=== PATIENT | female | born 1930 | race Caucasian/White ===

== ENCOUNTER 2020-02-06 17:22 | Observation (INO) ==
--- NOTE | 2020-02-06 17:49 | Emergency Department Note ---
History of Present Illness General Chief complaint: Stroke/CVA Symptoms Stated complaint: cva symptoms Time Seen by Provider: 02/06/20 17:31 Source: patient Mode of arrival: ambulatory Limitations: no limitations History of Present Illness This patient comes in after having an episode where she had slurred speech. This occurred between 1 and 130. It lasted for about 15 minutes, she is asymptomatic now. She has been having left frontal headaches off and on for several months that last about 5 minutes she had a headache earlier and then she had this. There has been no change in vision. No focal numbness or weakness. No fall or trauma or recent illness. She is not on any blood thinners. She denies any COVID exposure or COVID-like symptoms. Specifically denies shortness of breath, cough, fever, flulike symptom, change in taste or smell. Denies dysuria or hematuria. She has had trouble with her blood pressure in the past. Home Medications Home Medications Medication Instructions Recorded Confirmed Type aspirin 81 mg PO QPM 03/24/19 02/06/20 History atenolol 25 mg PO QAM 03/24/19 02/06/20 History omeprazole 20 mg PO QAM 03/24/19 02/06/20 History simvastatin 20 mg PO QPM 03/24/19 02/06/20 History biotin 1,000 mcg PO QPM 02/06/20 02/06/20 History losartan 50 mg PO QAM 02/06/20 02/06/20 History Allergies Allergy/AdvReac Type Severity Reaction Status Date / Time Penicillins AdvReac Intermediate Hives Verified 02/06/20 19:23 Past Med/Surg History Medical History (Updated 02/06/20 @ 22:36 by Mike Roman MD) CKD (chronic kidney disease), stage III Dyslipidemia GERD (gastroesophageal reflux disease) Headache (Inactive) Hypertension (Inactive) No pertinent family history Surgical History (Updated 02/06/20 @ 21:40 by Elli Huitron PA-C) History of cataract surgery (Resolved) History of cholecystectomy Family History (Updated 02/06/20 @ 21:36 by Elli Huitron PA-C) Sister Stroke Mother Breast cancer Social History (Updated 02/06/20 @ 21:36 by Elli Huitron PA-C) Preferred Language: Palauan Communication Ability: Effective Visual Impairment: No Limitations Hearing Ability: Hard of Hearing Tableau Report Developer Required: No Beliefs That Will Affect Care: None Current Living Situation: Alone Other Information That Helps Us Care for You: No Feels Safe at Home: Yes Safety Concerns: Feels Safe At This Time Smoking Status: Never smoker Do You Dip or Chew Tobacco: No ; Second Hand Exposure: No ; Tobacco Cessation Education Requested by Patient: No Hx Alcohol Use: No Hx Substance Use: No Review of Systems A total of 10 systems reviewed and were otherwise negative Physical Exam Vital Signs Vital Signs - 24 hr 02/06/20 17:25 02/06/20 18:08 02/06/20 18:13 Temperature 36.3 C L Temperature Source Oral Pulse Rate 76 63 66 Pulse Rate from SpO2 Sensor 77 Respiratory Rate 20 18 30 H Blood Pressure 200/116 H 196/112 H Blood Pressure Mean 144 119 Pulse Oximetry 93 95 Oxygen Delivery Method Room Air Sepsis Recent Fever Within 48 Hours No Sepsis New/Unexplained Change in Mental Status No Sepsis Action Taken by Nursing No Action Required 02/06/20 18:30 02/06/20 18:33 02/06/20 19:00 Temperature Temperature Source Pulse Rate 69 65 Pulse Rate from SpO2 Sensor 68 63 Respiratory Rate 22 21 Blood Pressure 187/97 H Blood Pressure Mean 124 Pulse Oximetry 94 97 93 Oxygen Delivery Method Room Air Sepsis Recent Fever Within 48 Hours Sepsis New/Unexplained Change in Mental Status Sepsis Action Taken by Nursing 02/06/20 19:01 02/06/20 20:10 02/06/20 20:13 Temperature Temperature Source Pulse Rate 64 71 87 Pulse Rate from SpO2 Sensor 74 73 Respiratory Rate 19 19 21 Blood Pressure 191/96 H 194/131 H 204/124 H Blood Pressure Mean 108 162 129 Pulse Oximetry 92 94 94 Oxygen Delivery Method Room Air Sepsis Recent Fever Within 48 Hours Sepsis New/Unexplained Change in Mental Status Sepsis Action Taken by Nursing 02/06/20 20:31 Temperature Temperature Source Pulse Rate 81 Pulse Rate from SpO2 Sensor Respiratory Rate 20 Blood Pressure 198/114 H Blood Pressure Mean 136 Pulse Oximetry 94 Oxygen Delivery Method Room Air Sepsis Recent Fever Within 48 Hours Sepsis New/Unexplained Change in Mental Status Sepsis Action Taken by Nursing General: Well developed well nourished older female who appears in no acute distress, breathing comfortably on room air. Normal speech. Normal mentation. Glascow coma score 15. HEENT: Normal cephalic atraumatic. Pupils are equal round and reactive to light. Extraocular movements are intact. Oropharynx is pink with moist mucous membranes. No swelling of the mouth lips or tongue. Neck: Supple with a midline trachea. No meningeal signs or stiffness, no JVD or bruits. No Stridor. Chest: Clear to auscultation bilaterally. No wheezes or rhonchi. No increased work of breathing. Heart: Regular rate and rhythm without murmurs or gallops. Abdomen: Soft nontender, nondistended without rebound guarding or rigidity. Extremities: No cyanosis clubbing or edema. No calf tenderness or assymetry Spine/Back. Non tender to palpation. No CVA tenderness Skin: Good turgor without rashes. Neurologic exam: Cranial nerves two through 12 are intact. Motor and sensation are intact and symmetrical throughout. No tremor. Finger-nose intact. No pronator drift. Course Administered Medications Discontinued Medications Ioversol (Optiray 320 125ml) 119 ml IV ONCE PRN PRN Reason: Interaction Checking Stop: 02/10/20 19:18 Last Admin: 02/06/20 19:19 Dose: 119 ml Documented by: [id number] Medical Decision Making Differential Diagnosis Differential diagnosis includes but is not limited to: Stroke, TIA, intracranial hemorrhage, aneurysm, temporal arteritis, infection, hypertension, cardiac disease Medical Records Attestation: I reviewed the patient's medical records. Home Medications Current Medication List: was personally reviewed by me Laboratory Data Attestation: I reviewed the patient's lab results. Result diagrams: 02/06/20 Unknown 02/06/20 Unknown Lab Results 02/06/20 02/06/20 02/06/20 Range/Units Unknown Unknown Unknown WBC 4.60 L (4.8-10.8) K/uL RBC 5.03 (4.2-5.4) M/uL Hgb 15.5 (12.0-16.0) g/dL Hct 45.7 (37-47) % MCV 90.9 (80-100) fL MCH 30.8 (25-34) pg MCHC 33.9 (32-36) g/dL RDW Std Deviation 44.9 (36.4-46.3) fL RDW Coeff of Michelle 13.6 (11.5-14.5) % Plt Count 189 (130-400) K/uL MPV 9.8 (7.4-10.4) fL Immature Gran % (Auto) 0.2 % Neut % (Auto) 49.5 % Lymph % (Auto) 36.3 % [place] % (Auto) 10.0 % Eos % (Auto) 3.3 % Baso % (Auto) 0.7 % Immature Gran # (Auto) 0.01 (0.00-0.02) K/uL Neut # (Auto) 2.28 (1.4-6.5) K/uL Lymph # (Auto) 1.67 (1.2-3.4) K/uL [place] # (Auto) 0.46 (0.11-0.59) K/uL Eos # (Auto) 0.15 (0-0.5) K/uL Baso # (Auto) 0.03 (0-0.2) K/uL ESR (0-21) mm/hr PT 11.7 (9.0-12.0) Seconds INR 1.1 (0.9-1.1) APTT 26.2 (21.0-31.0) Seconds PTT Ratio 0.9 Sodium 140 (136-145) mmol/L Potassium 3.7 (3.5-5.1) mmol/L Chloride 109 H (98-107) mmol/L Carbon Dioxide 24 (21-32) mmol/L Anion Gap 7.0 (3-11) BUN 20 H (7-18) mg/dl Creatinine 1.02 (0.6-1.2) mg/dl Est Cr Clr Drug Dosing Not Reportable Est GFR ( Amer) 56.5 Est GFR (Non-Af Amer) 48.7 BUN/Creatinine Ratio 20.0 (10-20) Glucose 90 (70-99) mg/dl Calcium 8.8 (8.5-10.1) mg/dl Magnesium 2.2 (1.8-2.4) mg/dl Total Bilirubin 0.5 (0.2-1) mg/dl AST 25 (15-37) U/L ALT 29 (12-78) U/L Alkaline Phosphatase 85 (45-117) U/L Troponin I < 0.015 (0-0.045) ng/ml Total Protein 7.3 (6.4-8.2) gm/dl Albumin 3.9 (3.4-5.0) gm/dl Globulin 3.4 (2.5-4.0) gm/dl Albumin/Globulin Ratio 1.2 (0.9-2) /05/20 Range/Units Unknown WBC (4.8-10.8) K/uL RBC (4.2-5.4) M/uL Hgb (12.0-16.0) g/dL Hct (37-47) % MCV (80-100) fL MCH (25-34) pg MCHC (32-36) g/dL RDW Std Deviation (36.4-46.3) fL RDW Coeff of Michelle (11.5-14.5) % Plt Count (130-400) K/uL MPV (7.4-10.4) fL Immature Gran % (Auto) % Neut % (Auto) % Lymph % (Auto) % [place] % (Auto) % Eos % (Auto) % Baso % (Auto) % Immature Gran # (Auto) (0.00-0.02) K/uL Neut # (Auto) (1.4-6.5) K/uL Lymph # (Auto) (1.2-3.4) K/uL [place] # (Auto) (0.11-0.59) K/uL Eos # (Auto) (0-0.5) K/uL Baso # (Auto) (0-0.2) K/uL ESR 8 (0-21) mm/hr PT (9.0-12.0) Seconds INR (0.9-1.1) APTT (21.0-31.0) Seconds PTT Ratio Sodium (136-145) mmol/L Potassium (3.5-5.1) mmol/L Chloride (98-107) mmol/L Carbon Dioxide (21-32) mmol/L Anion Gap (3-11) BUN (7-18) mg/dl Creatinine (0.6-1.2) mg/dl Est Cr Clr Drug Dosing Est GFR ( Amer) Est GFR (Non-Af Amer) BUN/Creatinine Ratio (10-20) Glucose (70-99) mg/dl Calcium (8.5-10.1) mg/dl Magnesium (1.8-2.4) mg/dl Total Bilirubin (0.2-1) mg/dl AST (15-37) U/L ALT (12-78) U/L Alkaline Phosphatase (45-117) U/L Troponin I (0-0.045) ng/ml Total Protein (6.4-8.2) gm/dl Albumin (3.4-5.0) gm/dl Globulin (2.5-4.0) gm/dl Albumin/Globulin Ratio (0.9-2) Imaging Data Radiologist's Impression: CAT scan of the head with a CT of the head neck: No acute findings or significant stenosis. Please refer to report ECG Data Attestation: I personally reviewed and interpreted this ECG as follows: Indication: + weakness Rate (beats per minute): 63 Rhythm: + atrial fibrillation ECG Intervals/blocks: + Normal QRS and + Normal QT ECG Converse: + Normal ECG ST segments: + Normal ST segments ECG Findings: + PVCs; no PACs Comparison ECG Date: from (03/24/19) Change: no significant change MDM Narrative This patient comes in after having slurred speech and strokelike symptoms that occurred approximately 4 and half hours prior to arrival the only lasted 15- minute. she is asymptomatic. Her blood pressure was elevated triage and could be related to that. IV access was established, EKG, chest x-ray and neuroimaging was obtained including CTA of the head and neck. Her EKG did note a rate controlled A. fib. Reviewing her old EKG this was present previously however she is not on any anticoagulation. She has no white count or fever to suggest infection. She has no significant anemia. She has no significant electrolyte or metabolic abnormalities and she has normal renal function. She has nothing to suggest liver, gallbladder, or pancreas disease. She has remained stable. CAT scans were unremarkable. I do think she needs to be admitted/observe for further neurologic work-up. Her blood pressure did come down significantly to the 190s over 90s and I consulted Dr. Silvestre. It appears to have coming back up prior to being admitted although she does need her evening meds. She will be admitted for further treatment and evaluation and has remained asymptomatic in the ED. Continuous cardiac monitoring: An order was placed for continuous cardiac monitoring. This was done due to the patient's high blood pressure and strokelike symptoms. She was noted to be in a rate controlled A. fib with a pulse rate of about 75. She remained stable on the monitor. Impression & Plan TIA (transient ischemic attack), Aphasia, HTN (hypertension), Atrial fibri llation Discharge Plan Visit Data *Final* Discharge Date/Time: 02/06/20 21:25 Chief Complaint: Stroke/CVA Symptoms Stated Complaint: cva symptoms ED Provider: Mike Roman Discharge Problem: TIA (transient ischemic attack), Aphasia, HTN (hypertension), Atrial fibrillation Patient Disposition: Admitted As Inpatient Discharge Instructions Interventions: ED Discharge Assessment Last Done: 02/06/20 21:25 Discharge Problem: HTN (hypertension) Qualifiers: Hypertension type: essential hypertension Qualified Code(s): I10 - Essential (primary) hypertension Atrial fibrillation Qualifiers: Atrial fibrillation type: longstanding persistent Qualified Code(s): I48.11 - Longstanding persistent atrial fibrillation
[2020-02-06 18:20] LABS: Basophils # (auto) 0.03 K/uL (0-0.2); Basophils % (auto) 0.7 %; Eosinophils # (auto) 0.15 K/uL (0-0.5); Eosinophils % (auto) 3.3 %; Hematocrit (blood only) 45.7 % (37-47); Hemoglobin 15.5 g/dL (12.0-16.0); Immature Granulocytes # (auto) 0.01 K/uL (0.00-0.02); Immature Granulocytes % (auto) 0.2 %; Lymphocytes # (auto) 1.67 K/uL (1.2-3.4); Lymphocytes % (auto) 36.3 %; Mean Corpuscular Hemoglobin 30.8 pg (25-34); Mean Corpuscular Hgb Conc 33.9 g/dL (32-36); Mean Corpuscular Volume 90.9 fL (80-100); Mean Platelet Volume 9.8 fL (7.4-10.4); Monocytes # (auto) 0.46 K/uL (0.11-0.59); Neutrophils # (auto) 2.28 K/uL (1.4-6.5); Neutrophils % (auto) 49.5 %; Platelet Count 189 K/uL (130-400); RDW Coefficient of Variation 13.6 % (11.5-14.5); RDW Standard Deviation 44.9 fL (36.4-46.3); Red Blood Count 5.03 M/uL (4.2-5.4)
[2020-02-06 18:32] LABS: INR 1.1 (0.9-1.1); Partial Thromboplastin Ratio 0.9; Partial Thromboplastin Time 26.2 Seconds (21.0-31.0); Prothrombin Time 11.7 Seconds (9.0-12.0)
[2020-02-06 18:38] LABS: Alanine Aminotransferase 29 U/L (12-78); Albumin Level 3.9 gm/dl (3.4-5.0); Aspartate Aminotransferase 25 U/L (15-37); Blood Urea Nitrogen 20 mg/dl (7-18); Calcium 8.8 mg/dl (8.5-10.1); Carbon Dioxide 24 mmol/L (21-32); Chloride 109 mmol/L (98-107); Est GFR (African American) 56.5; Est GFR (Non-African American) 48.7; Glucose 90 mg/dl (70-99); Magnesium 2.2 mg/dl (1.8-2.4); Potassium 3.7 mmol/L (3.5-5.1); Sodium 140 mmol/L (136-145)
[2020-02-06 18:43] LABS: Albumin Globulin Ratio 1.2 (0.9-2); Alkaline Phosphatase 85 U/L (45-117); Bilirubin,Total 0.5 mg/dl (0.2-1); Globulin 3.4 gm/dl (2.5-4.0); Total Protein 7.3 gm/dl (6.4-8.2); Troponin I < 0.015 ng/ml (0-0.045)
[2020-02-06] MEDS ORDERED: OPTIRAY 320 125ml IV PRN (19:19)
--- NOTE | 2020-02-06 19:33 | CT Scan Report ---
CT head/brain wo con CT DOSE: HISTORY: Stroke evaluation TECHNIQUE: Multiaxial CT images of the head were performed without the use of intravenous contrast. A dose lowering technique was utilized adhering to the principles of ALARA. Comparison: None. Findings: The paranasal sinuses and mastoid air cells are clear. The calvarium and skull base are int act. The ventricles and sulci are within normal limits. There is no mass, hematoma, midline shift, or acute infarct. Impression: No acute intracranial abnormality. Age-related atrophy and chronic small vessel change ACT 112: Negative or not required by law. The above report was generated using voice recognition software. It may contain grammatical, syntax or spelling errors. Electronically signed by: Samir Choe M.D. 02/06/2020 7:32 PM
--- NOTE | 2020-02-06 19:38 | CT Scan Report ---
CT angio neck with con HISTORY: Stroke evaluation TECHNIQUE: Multiaxial CT angiography of the neck was performed IV contrast: 100 cc nonionic All josé miguel urements were calculated based on NASCET criteria. Maximum intensity projection images were also obt ained. A dose lowering technique was utilized adhering to the principles of ALARA. COMPARISON STUDY: None. FINDINGS: Considerable atherosclerotic change aortic arch. Moderate apical chronic fibrotic change. N o significant stenotic process of the vertebral basilar system. Moderate narrowing distal aspect righ t vertebral artery compared to the dominant left. The basilar is unremarkable. Carotid system is luís rkable for plaque formation at the carotid bifurcations. 30-40% stenosis of the internal carotid leno sean bilaterally. No evidence for high grade or critical stenosis. IMPRESSION: 1. Moderate plaque formation at the carotid bifurcations. 2. Mild narrowing of the carotid bifurcations as well as distal right vertebral artery. 3. No evidence for high-grade or significant stenotic process. ACT 112: Negative or not required by law. The above report was generated using voice recognition software. It may contain grammatical, syntax or spelling errors. Electronically signed by: Samir Choe M.D. 02/06/2020 7:36 PM
--- NOTE | 2020-02-06 19:40 | CT Scan Report ---
CT angio head w con HISTORY: Mental status change Stroke evaluation TECHNIQUE: Multiaxial CT angiography of the head was performed IV contrast: 100 cc nonionic Maximu m intensity projection images were also obtained. A dose lowering technique was utilized adhering to the principles of ALARA. COMPARISON: None. FINDINGS: There is no mass, hematoma, midline shift, or acute infarct. Visualized intracranial international sourcing manager al carotid arteries, distal vertebral arteries, and basilar artery are widely patent. There is no sig nificant stenosis, occlusion, or aneurysm seen within the bilateral ACAs, MCAs, or marine electronics repairer. Mild scatter ed plaque formation throughout all major carotid/intracranial systems IMPRESSION: No significant stenosis, occlusion, or aneurysm within the [place]. Mild scattered plaque fo rmation throughout ACT 112: Negative or not required by law. The above report was generated using voice recognition software. It may contain grammatical, syntax or spelling errors. Electronically signed by: Samir Choe M.D. 02/06/2020 7:39 PM
--- NOTE | 2020-02-06 20:46 | History & Physical Report ---
Date of Service February 06, 2020 Assessment & Plan (1) Aphasia: Pt is 89 y/o F with PMH paroxysmal atrial fibrillation, HTN, dyslipidemia, CKD III, GERD presented to ER with complaint of trouble speaking words this afternoon. No further speech problems. C/O left frontal RICCI which since in ER reports has resolved. Had reported BP at home today. Denies dizziness, syncope, CP, SOB, extremity weakness or parasthesias CT HEAD:No acute intracranial abnormality. Age-related atrophy and chronic small vessel change CTA HEAD:No significant stenosis, occlusion, or aneurysm within the [place]. Mild scattered plaque formation throughout CTA NECK:1. Moderate plaque formation at the carotid bifurcations. 2. Mild narrowing of the carotid bifurcations as well as distal right vertebral artery. 3. No evidence for high-grade or significant stenotic process. DDX: HTN emergency, TIA, stroke -In ER pt afebrile, P: 76, R: 20, BP: 200/116, 93% on RA. no significant electrolyte abnormality, negative troponin. EKG afib, rate controlled -lipids, HA1C, CBC, BMP in am -MRI brain -Consider echo if MRI would show signs of acute stroke -aspiration precautions -PT/OT consult -Continue statin, aspirin -allow permissive HTN initially, labetalol prn -Monitor BP, may need medication adjustments or additional BP med -neurology consult (2) HTN (hypertension): Hypertensive in ER. Reports took BP meds today -Labetalol prn -Continue losartan, atenolol -Monitor BP, may need medication adjustments or additional BP med (3) Atrial fibrillation: H/O paroxysmal atrial fibrillation not on anticoagulation secondary to recurrent falls. Follows with Dr Cheyenne Robledo, rate controlled -Continue atenolol (4) Dyslipidemia: -Continue statin (5) CKD (chronic kidney disease), stage III: Cr: 1.0. Baseline Cr: 1.0-1.1 -Monitor renal functions -Avoid nephrotoxic agents when possible (6) GERD (gastroesophageal reflux disease): -Continue PPI DVT Prophylaxis -Heparin SQ DNR/DNI as per discussion with pt Follows with Dr Anguiano for routine care Pt was seen and care coordinated with Dr Main. See addendum History of Present Illness Chief Complaint: Speech problems Primary Care Provider: Meena Anguiano DO Pt is 89 y/o F with PMH paroxysmal atrial fibrillation, HTN, dyslipidemia, CKD III, GERD presented to ER with complaint of speech problems. Patient reports this morning woke up and felt fine she ate lunch and sat down after lunch when a neighbor called her on the phone and patient noticed that she had trouble getting her words out. She reports she ended up hanging up the phone and then neighbor called back and then she seemed to be able to talk without difficulty. Neighbor came to her apartment and took her BP and reports was 199/99. Patient states having left frontal headache today. Denies any further speech difficulties throughout the day. Pt reports history of falls. Reports fell one month ago. Reports some intermittent BLE edema, none recently. Has chronic poor appetite, denies significant weight loss. Denies dizziness, syncope, vision changes, extremity weakness or paresthesias. Denies fever/chills, diaphoresis, N/V/D/C, neck pain, CP, SOB, orthopnea, palpitations, cough, sore throat, choking, otalgia, rhinorrhea, abdominal pain, weakness, extremity weakness, rashes, urinary symptoms. Allergies Allergy/AdvReac Type Severity Reaction Status Date / Time Penicillins AdvReac Intermediate Hives Verified 02/06/20 19:23 Home Medications Home Medications Medication Instructions Recorded Confirmed Type aspirin 81 mg PO QPM 03/24/19 02/06/20 History atenolol 25 mg PO QAM 03/24/19 02/06/20 History omeprazole 20 mg PO QAM 03/24/19 02/06/20 History simvastatin 20 mg PO QPM 03/24/19 02/06/20 History biotin 1,000 mcg PO QPM 02/06/20 02/06/20 History losartan 50 mg PO QAM 02/06/20 02/06/20 History Past Med/Surg History Medical History (Updated 02/06/20 @ 22:36 by Mike Roman MD) CKD (chronic kidney disease), stage III Dyslipidemia GERD (gastroesophageal reflux disease) Headache (Inactive) Hypertension (Inactive) No pertinent family history Surgical History (Updated 02/06/20 @ 21:40 by Elli Huitron PA-C) History of cataract surgery (Resolved) History of cholecystectomy Family History (Updated 02/06/20 @ 21:36 by Elli Huitron PA-C) Sister Stroke Mother Breast cancer Social History (Updated 02/06/20 @ 21:36 by Elli Huitron PA-C) Preferred Language: Tristanian Communication Ability: Effective Visual Impairment: No Limitations Hearing Ability: Hard of Hearing Web Editor Required: No Beliefs That Will Affect Care: None Current Living Situation: Alone Other Information That Helps Us Care for You: No Feels Safe at Home: Yes Safety Concerns: Feels Safe At This Time Smoking Status: Never smoker Do You Dip or Chew Tobacco: No ; Second Hand Exposure: No ; Tobacco Cessation Education Requested by Patient: No Hx Alcohol Use: No Hx Substance Use: No Review of Systems Review of Systems: All systems reviewed & are unremarkable except as noted in HPI & below Physical Exam Physical Exam: General: no distress, WDWN Head: normocephalic, atraumatic Eyes: PERRL, EOM's intact, conjunctiva non-injected, anicteric ENT: normal inspection external ears, nose, mucous membranes moist Neck: supple, trachea midline Lungs: clear, no respiratory distress, no wheezing/rhonchi/rales CV: irregularly irregular, rate 68, no pretibial edema Abd: normal BS, soft, non-tender Ext: no cyanosis, no calf tenderness Neuro: A&O x 3, normal affect, face is strong and symmetric, hard of hearing, no dysarthria, tongue is midline, strength 5/5 bilateral upper and lower extrem ities Skin: warm, dry Results & Data Results & Data ([facility]) Vital Signs (Past 12 Hours) Vital Signs Temp Pulse Resp BP Pulse Ox 02/06/20 20:31 81 20 198/114 H 94 02/06/20 20:13 87 21 204/124 H 94 02/06/20 20:10 71 19 194/131 H 94 02/06/20 19:01 64 19 191/96 H 92 02/06/20 19:00 65 21 93 02/06/20 18:33 97 02/06/20 18:30 69 22 187/97 H 94 02/06/20 18:13 66 30 H 196/112 H 95 02/06/20 18:08 63 18 02/06/20 17:25 36.3 C L 76 20 200/116 H 93 Laboratory Results Short CBC 02/06/20 Range/Units Unknown WBC 4.60 L (4.8-10.8) K/uL Hgb 15.5 (12.0-16.0) g/dL Hct 45.7 (37-47) % Plt Count 189 (130-400) K/uL BMP 02/06/20 Unknown Sodium 140 Potassium 3.7 Chloride 109 H Carbon Dioxide 24 BUN 20 H Creatinine 1.02 Glucose 90 Calcium 8.8 Cardiac Enzymes 02/06/20 Range/Units Unknown Troponin I < 0.015 (0-0.045) ng/ml Liver Function 02/06/20 Range/Units Unknown Total Bilirubin 0.5 (0.2-1) mg/dl AST 25 (15-37) U/L ALT 29 (12-78) U/L Alkaline Phosphatase 85 (45-117) U/L Albumin 3.9 (3.4-5.0) gm/dl Diagnostic Findings CT HEAD: Impression: No acute intracranial abnormality. Age-related atrophy and chronic small vessel change CTA HEAD: IMPRESSION: No significant stenosis, occlusion, or aneurysm within the [place]. Mild scattered plaque formation throughout CTA NECK: IMPRESSION: 1. Moderate plaque formation at the carotid bifurcations. 2. Mild narrowing of the carotid bifurcations as well as distal right vertebral artery. 3. No evidence for high-grade or significant stenotic process. Code Status & VTE Plan VTE Prophylaxis Plan VTE Prophylaxis will be ordered: Yes Supervising Physician Co-Signing Physician Notes Pt seen and examined by me, care coordinated with Elli Huitron PA-C. Pt is an 89 y/o F with PMH paroxysmal atrial fibrillation, HTN, dyslipidemia, CKD III, who presented to ER with complaint of trouble speaking words this afternoon. No further speech problems. C/O left frontal RICCI which since in ER reports has resolved. Had reported elevated BP at home today, and BP significantly elevated in the ED as well 200s/100s. Denies dizziness, syncope, CP, SOB, extremity weakness or parasthesias CT Head negative and CTA head/neck does not show significant stenosis. She is lying in bed in NAD, alert and oriented, answers questions appropriately. Speech is fluent. Moves extremities spontaneously, no strebgth deficit noted, no sensory loss noted. Cranial nerves intact. Lungs are CTAB w/o any wheezing, rhonchi or crackles. Heart sound irregular. Abdomen soft, nontender, nondistended, normal bowel sounds. Skin and extremities warm and well perfused. Pt has hx of uncontrolled HTN, was evaluatedin ED for that in March 2019. Need to control BP overnight, will start labetolol prn (in addition to her home medications). Also counseled pt on BP monitoring at home. Pt follows w/traffic signal mechanic, Dr. Quinn for her hx of Afib. Given hx of frequent falls pt is not any anticoagulation. Likely pt symptomatic from uncontrolled HTN. For thorough evaluation,will obtain MRI, and consult neurology. MD Ilia (1) Atrial fibrillation Atrial fibrillation type: longstanding persistent Qualified Code(s): I48.11 - Longstanding persistent atrial fibrillation (2) HTN (hypertension) Hypertension type: essential hypertension Qualified Code(s): I10 - Essential (primary) hypertension
[2020-02-06] MEDS ORDERED: ACETAMINOPHEN 325 MG TAB PO PRN (21:43)
[2020-02-06] MEDS ORDERED: LABETALOL HCL IV 5 MG/ML 20ML IV PRN (21:43)
[2020-02-06] MEDS ORDERED: PHARMACIST DISCHARGE MED REC CONSULT PRN (21:43)
[2020-02-07 05:56] LABS: Basophils # (auto) 0.03 K/uL (0-0.2); Basophils % (auto) 0.5 %; Eosinophils # (auto) 0.14 K/uL (0-0.5); Eosinophils % (auto) 2.5 %; Hematocrit (blood only) 44.7 % (37-47); Hemoglobin 15.4 g/dL (12.0-16.0); Immature Granulocytes # (auto) 0.01 K/uL (0.00-0.02); Immature Granulocytes % (auto) 0.2 %; Lymphocytes # (auto) 1.29 K/uL (1.2-3.4); Mean Corpuscular Hemoglobin 31.1 pg (25-34); Mean Corpuscular Hgb Conc 34.5 g/dL (32-36); Mean Corpuscular Volume 90.3 fL (80-100); Mean Platelet Volume 10.2 fL (7.4-10.4); Monocytes # (auto) 0.55 K/uL (0.11-0.59); Monocytes % (auto) 9.8 %; Neutrophils # (auto) 3.58 K/uL (1.4-6.5); Platelet Count 185 K/uL (130-400); RDW Coefficient of Variation 13.6 % (11.5-14.5); RDW Standard Deviation 44.7 fL (36.4-46.3); Red Blood Count 4.95 M/uL (4.2-5.4)
--- NOTE | 2020-02-07 06:18 | Magnetic Resonance Report ---
MR brain wo con CLINICAL HISTORY: 89 years-old Female presenting with stroke like symptoms, acute onset dysarthria, h istory of head injury a few weeks ago. TECHNIQUE: Multisequence, multiplanar MR imaging of the brain was performed without the use of intrav enous contrast. IV contrast: None. COMPARISON: Noncontrast CT head from 02/06/2020. FINDINGS: Localizer images: Unremarkable. Bone marrow signal intensity within the calvarium within normal limits. Normal midline sagittal structures. Proportional ventricular and sulcal prominence, likely age-relate d parenchymal volume loss. No mass effect or midline shift. No restricted diffusion or hemorrhage. Pe riventricular and subcortical white matter T2/FLAIR hyperintensity, nonspecific but likely indicative of chronic small vessel ischemic change. No extra-axial fluid collection. T2 skull base flow voids preserved. Bilateral [place] lenses are abse nt. IMPRESSION: 1. Chronic small vessel ischemic change. No acute intracranial abnormality. ACT 112: Negative or not required by law. Electronically signed by: Oskar Morgan M.D. 02/07/2020 6:17 AM
[2020-02-07 06:29] LABS: BUN Creatinine Ratio 17.7 (10-20); Calcium 8.8 mg/dl (8.5-10.1); Creatinine Clr Calc Pharmacy 45.3 ml/min; Est GFR (African American) 67.5; Est GFR (Non-African American) 58.3; Potassium 3.6 mmol/L (3.5-5.1)
[2020-02-07 07:29] LABS: Estimated Average Glucose 117 mg/dl; Hemoglobin A1C 5.7 % (4.5-5.6)
[2020-02-07] MEDS ORDERED: HEPARIN SOD 5,000 UNIT/0.5 ML VIAL SQ SCH (09:00)
[2020-02-07] MEDS ORDERED: PANTOprazole 40 MG TAB PO SCH (09:00)
[2020-02-07] MEDS ORDERED: LOSARTAN POTASSIUM 50 MG TAB PO SCH (09:00)
[2020-02-07] MEDS ORDERED: ATENOLOL 25 MG TABLET PO SCH (09:00)
--- NOTE | 2020-02-07 09:51 | Neurology Consultation ---
Date of Consultation February 07, 2020 Assessment & Plan (1) TIA (transient ischemic attack): An 89 year old woman with hx of PAF not on anticoagulation due to remote fall history admitted for transient speech difficulty. Syptoms duration less than 10 min. Currently back to baseline. Symptoms concerning for possible TIA. She denies frequent or recent falls. She is using a cane. No hx of prior hemorrhage. Recommend starting Eliquis for secondary stroke prevention. Ok to stop ASA. Continue current statin. SBP< 140, DBP<90. Patient desires to go home - TTE can be completed as outpatient as she has a cardiology apt in a few weeks. Neurology follow up in 8 weeks. Discussed anticoagulation with patient and she is agreeable. (2) Aphasia: History of Present Illness Attending Physician: Alberto Jay MD History of Present Illness An 89-year-old woman admitted with speech difficulty yesterday afternoon. She has a history of paroysmal atrial fibrillation is not on anticoagulation due to previous falls. She follows with cardiology. She is on aspirin as well as a statin. She was admitted for further stroke evaluation.She did have a headache prior to this which had resolved. Speech is back to normal. Allergies Allergy/AdvReac Type Severity Reaction Status Date / Time Penicillins AdvReac Intermediate Hives Verified 02/06/20 19:23 Home Medications Home Medications Medication Instructions Recorded Confirmed Type aspirin 81 mg PO QPM 03/24/19 02/06/20 History atenolol 25 mg PO QAM 03/24/19 02/06/20 History omeprazole 20 mg PO QAM 03/24/19 02/06/20 History simvastatin 20 mg PO QPM 03/24/19 02/06/20 History biotin 1,000 mcg PO QPM 02/06/20 02/06/20 History losartan 50 mg PO QAM 02/06/20 02/06/20 History Patient History Medical History (Updated 02/06/20 @ 22:36 by Mike Roman MD) CKD (chronic kidney disease), stage III Dyslipidemia GERD (gastroesophageal reflux disease) Headache (Inactive) Hypertension (Inactive) No pertinent family history Surgical History (Updated 02/06/20 @ 21:40 by Elli Huitron PA-C) History of cataract surgery (Resolved) History of cholecystectomy Family History (Updated 02/06/20 @ 21:36 by Elli Huitron PA-C) Sister Stroke Mother Breast cancer Social History (Updated 02/06/20 @ 21:36 by Elli Huitron PA-C) Preferred Language: Samoan Communication Ability: Effective Visual Impairment: No Limitations Hearing Ability: Hard of Hearing Single End Sewer Required: No Beliefs That Will Affect Care: None Current Living Situation: Alone Other Information That Helps Us Care for You: No Feels Safe at Home: Yes Safety Concerns: Feels Safe At This Time Smoking Status: Never smoker Do You Dip or Chew Tobacco: No ; Second Hand Exposure: No ; Tobacco Cessation Education Requested by Patient: No Hx Alcohol Use: No Hx Substance Use: No Physical Exam Physical Exam: Patient awake and alert. Speech is clear. She can repeat. comprehension is intacct. Speech is fluent. Face symmetric. Eyes midline. Ambulates wiht wide base and uses walker. EOMI. tongue midline. Results & Data Vital Signs (Past 12 Hours) Vital Signs Temp Pulse Pulse Resp BP BP Pulse Ox 02/07/20 07:09 36.5 C 80 20 167/80 H 95 02/07/20 05:38 36.5 C 73 20 165/107 H 96 02/07/20 00:27 182/105 H 02/07/20 00:00 72 02/06/20 23:34 36.6 C 87 20 191/108 H 96 02/06/20 22:10 36.7 C 18 220/140 H 95 Diagnostic Findings MRI brain:1. Chronic small vessel ischemic change. No acute intracranial abnormality. CTA Neck: Carotid system is remarkable for plaque formation at the carotid bifurcations. 30-40% stenosis of the internal carotid arteries bilaterally. No evidence for high grade or critical stenosis
--- NOTE | 2020-02-07 14:04 | Hospitalist Progress Note ---
Date of Service February 07, 2020 Assessment & Plan (1) Aphasia: Patient is an 89 yr female with H/O paroxysmal atrial fibrillation, HTN, dyslipidemia, CKD III, GERD presented to ER with complaint of transient expressive aphasia associated with frontal headache, elevated blood pressure. Possible Transient ischemic attack CT HEAD:No acute intracranial abnormality. Age-related atrophy and chronic small vessel change CTA HEAD:No significant stenosis, occlusion, or aneurysm within the [place] of [place]. Mild scattered plaque formation throughout CTA NECK:Moderate plaque formation at the carotid bifurcations. Mild narrowing of the carotid bifurcations as well as distal right vertebral artery. No evidence for high-grade or significant stenotic process. MRI Brain:Chronic small vessel ischemic change. No acute intracranial abnormality. Will Increase dose of simvastatin to 40mg (High Intensity) Will discontinue Aspirin and start on anticoagulation with Eliquis (Given H/O P.afib) as recommended by neurology No h/o recent falls as per patient Given H/O falls, age and co-morbidities: After assessing risks Vs benefits: Patient will be started on Eliquis and discontinued on aspirin: Patient agrees with the plan. Appreciate neurology input PT OT, speech eval done Needs follow-up with neurology as outpatient (2) HTN (hypertension): Hypertensive on presentation Continue losartan, atenolol Bp better (3) Atrial fibrillation: H/O paroxysmal atrial fibrillation not on anticoagulation prior to admission Follows with Dr Quinn as outpatient Afib, rate controlled Continue atenolol And Eliquis for anticoagulation (4) Dyslipidemia: Continue statin (5) CKD (chronic kidney disease), stage III: Cr: 1.0. Baseline Cr: 1.0-1.1 Monitor renal functions Avoid nephrotoxic agents when possible (6) GERD (gastroesophageal reflux disease): Continue PPI DVT Px: Heparin SQ Code Status DNR/DNI Disposition Plan to discharge home today Admission and Anticipated Discharge Date Admission Date: February 06, 2020 Subjective Patient is seen and examined at bedside Doing well this morning Speech clear, fluent Denies any focal weakness Also denies any chest pain, shortness of breath, dizziness, nausea, abdominal pain Headache resolved Discussed with neurology today Review of Systems Review of Systems: All systems reviewed & are unremarkable except as noted in HPI & below Physical Exam Physical Exam: Physical Exam: Vitals signs as noted above General Appearance:Moderately built and nourished, no apparent distress Head: normocephalic, Atraumatic Eyes: normal inspection, EOMI, PERRL Neck: supple, Trachea midline Respiratory/Chest: Normal breath sounds, CTA, No accessory muscle use Cardiovascular: Irregularly Irregular, No murmur Abdomen/GI:Soft, Non tender, Bowel sounds present Extremities/Musculoskelatal:normal inspection, Trace pedal edema Neurologic/Psych:AAOX3, grossly no focal neurological deficits Skin: normal color, warm Results & Data Results & Data ([facility]) Vital Signs (Past 12 Hours) Vital Signs Temp Pulse Resp BP BP Pulse Ox 02/07/20 12:22 36.4 C L 90 18 144/94 H 95 02/07/20 07:09 36.5 C 80 20 167/80 H 95 02/07/20 05:38 36.5 C 73 20 165/107 H 96 Laboratory Results Short CBC 02/06/20 02/07/20 Range/Units Unknown 05:31 WBC 4.60 L 5.60 (4.8-10.8) K/uL Hgb 15.5 15.4 (12.0-16.0) g/dL Hct 45.7 44.7 (37-47) % Plt Count 189 185 (130-400) K/uL BMP 02/06/20 02/07/20 Unknown 05:31 Sodium 140 141 Potassium 3.7 3.6 Chloride 109 H 110 H Carbon Dioxide 24 24 BUN 20 H 16 Creatinine 1.02 0.88 Glucose 90 91 Calcium 8.8 8.8 Cardiac Enzymes 02/06/20 Range/Units Unknown Troponin I < 0.015 (0-0.045) ng/ml Liver Function 02/06/20 Range/Units Unknown Total Bilirubin 0.5 (0.2-1) mg/dl AST 25 (15-37) U/L ALT 29 (12-78) U/L Alkaline Phosphatase 85 (45-117) U/L Albumin 3.9 (3.4-5.0) gm/dl (1) HTN (hypertension) Hypertension type: essential hypertension Qualified Code(s): I10 - Essential (primary) hypertension (2) Atrial fibrillation Atrial fibrillation type: longstanding persistent Qualified Code(s): I48.11 - Longstanding persistent atrial fibrillation
[2020-02-07] MEDS ORDERED: APIXABAN 2.5 MG TAB PO ONE (14:23)
[2020-02-07] MEDS ORDERED: STROKE PATIENT DISCHARGE STA (14:24)
--- NOTE | 2020-02-07 14:26 | Discharge Summary ---
Date of Service February 07, 2020 Admission HPI Per Admitting Provider Pt is 89 y/o F with PMH paroxysmal atrial fibrillation, HTN, dyslipidemia, CKD III, GERD presented to ER with complaint of speech problems. Patient reports this morning woke up and felt fine she ate lunch and sat down after lunch when a neighbor called her on the phone and patient noticed that she had trouble getting her words out. She reports she ended up hanging up the phone and then neighbor called back and then she seemed to be able to talk without difficulty. Neighbor came to her apartment and took her BP and reports was 199/99. Patient states having left frontal headache today. Denies any further speech di fficulties throughout the day. Pt reports history of falls. Reports fell one month ago. Reports some intermittent BLE edema, none recently. Has chronic poor appetite, denies significant weight loss. Denies dizziness, syncope, vision changes, extremity weakness or paresthesias. Denies fever/chills, diaphoresis, N/V/D/C, neck pain, CP, SOB, orthopnea, palpitations, cough, sore throat, choking, otalgia, rhinorrhea, abdominal pain, weakness, extremity weakness, rashes, urinary symptoms. Admission Exam Per Admitting Provider Physical Exam Physical Exam: General: no distress, WDWN Head: normocephalic, atraumatic Eyes: PERRL, EOM's intact, conjunctiva non-injected, anicteric ENT: normal inspection external ears, nose, mucous membranes moist Neck: supple, trachea midline Lungs: clear, no respiratory distress, no wheezing/rhonchi/rales CV: irregularly irregular, rate 68, no pretibial edema Abd: normal BS, soft, non-tender Ext: no cyanosis, no calf tenderness Neuro: A&O x 3, normal affect, face is strong and symmetric, hard of hearing, no dysarthria, tongue is midline, strength 5/5 bilateral upper and lower extr emities Skin: warm, dry Principal Diagnosis Transient ischemic attack Discharge Data Allergies Allergy/AdvReac Type Severity Reaction Status Date / Time Penicillins AdvReac Intermediate Hives Verified 02/06/20 19:23 Consultations 02/06/20 20:12 ED Decision to Admit Stat 02/06/20 21:43 Consult Case Management - Discharge Planning Routine Consult Neurology Routine Procedures Performed CT HEAD:No acute intracranial abnormality. Age-related atrophy and chronic small vessel change CTA HEAD:No significant stenosis, occlusion, or aneurysm within the [place]. Mild scattered plaque formation throughout CTA NECK:Moderate plaque formation at the carotid bifurcations. Mild narrowing of the carotid bifurcations as well as distal right vertebral artery. No evidence for high-grade or significant stenotic process. MRI Brain:Chronic small vessel ischemic change. No acute intracranial abnormality. Ordered Studies 02/06/20 17:41 CT angio head w con Stat CT angio neck with con Stat CT head/brain wo con Stat 02/06/20 21:43 MR brain wo con Routine Hospital Course (1) Aphasia: Patient is an 89 yr female with H/O paroxysmal atrial fibrillation, HTN, dyslipidemia, CKD III, GERD presented to ER with complaint of transient expressive aphasia associated with frontal headache, elevated blood pressure. Possible Transient ischemic attack CT HEAD:No acute intracranial abnormality. Age-related atrophy and chronic small vessel change CTA HEAD:No significant stenosis, occlusion, or aneurysm within the [place]. Mild scattered plaque formation throughout CTA NECK:Moderate plaque formation at the carotid bifurcations. Mild narrowing of the carotid bifurcations as well as distal right vertebral artery. No evidence for high-grade or significant stenotic process. MRI Brain:Chronic small vessel ischemic change. No acute intracranial abnormality. Will Increase dose of simvastatin to 40mg (High Intensity) Will discontinue Aspirin and start on anticoagulation with Eliquis (Given H/O P.afib) as recommended by neurology No h/o recent falls as per patient Given H/O falls, age and co-morbidities: After assessing risks Vs benefits: Patient will be started on Eliquis and discontinued on aspirin: Patient agrees with the plan. Appreciate neurology input PT OT, speech eval done Needs follow-up with neurology as outpatient (2) HTN (hypertension): Hypertensive on presentation Continue losartan, atenolol Bp better (3) Atrial fibrillation: H/O paroxysmal atrial fibrillation not on anticoagulation prior to admission Follows with Dr Quinn as outpatient Afib, rate controlled Continue atenolol And Eliquis for anticoagulation (4) Dyslipidemia: Continue statin (5) CKD (chronic kidney disease), stage III: Cr: 1.0. Baseline Cr: 1.0-1.1 Monitor renal functions Avoid nephrotoxic agents when possible (6) GERD (gastroesophageal reflux disease): Continue PPI DVT Px: Heparin SQ Code Status DNR/DNI Disposition Plan to discharge home today Total Time Total Time Spent Total Time Spent (In Minutes): 35 minutes Discharge Plan Discharge Items Patient Disposition: Home - Self-Care Reason For Visit: STROKE LIKE SYMPTOMS Discharge Diagnosis: Transient ischemic attack Activity: Per Instructions section Exercise/Sports: Gradually increase as tolerated Non-emergency contact: Primary Care Provider and Neurologist Call non-emergency contact if: you have any medication questions, your symptoms worsen, your pain is not controlled, your pain is worsening, your pain is unusual for you, your pain is concerning for you and you have a fever Follow-up/Referrals: Meena Anguiano, [Primary Care Provider] - Diet: Heart Healthy Addtl Attending Provider Instructions: Follow-up with your primary care physician Dr. Meena Anguiano in 1 week Follow-up with your neurologist Dr. Stevie Alejandro in 8 weeks as advised Get Echocardiogram as outpatient to complete the work-up for strokelike symptoms as outpatient. Medication Changes: 1) aspirin 81 mg is discontinued 2) Started on Apixaban (Eliquis) 5mg twice a day 3) Simvastatin increased to 40 mg daily Check your blood pressure regularly. Discussed with your physician for further adjustment of your blood pressure medications if needed. Seek immediate medical attention if your symptoms reoccur or worsen Risk Factors for Stroke: You can reduce your chances of stroke by working with your medical provider to adopt a healthy lifestyle. Some specific ways to lower your chance of stroke are: * If you are a smoker, now is the time to stop smoking cigarettes * If you are diabetic, improve the control of your blood sugars * Avoid excessive amounts of alcohol * Control high blood pressure * Lose weight if you are overweight * Be sure to lead an active lifestyle * Eat a healthy diet low in salt, cholesterol and fat You should know about other risk factors for stroke that you are unable to control. These include: * Age 55 years or older * Male gender * Certain racial groups: , or / * Family History of Stroke, Mini stroke or Heart Attack * Sickle Cell Disease Follow Up: It is important for you to keep your follow up appointments with your medical provider. Who to Call and When: Medical Emergencies: Call 911 immediately if you experience any of the following warning signs and symptoms of Stroke: * Sudden numbness or weakness of the face, arm or leg, especially on one side of the body * Sudden confusion, trouble speaking or understanding * Sudden trouble seeing in one or both eyes * Sudden trouble walking, dizziness, loss of balance or coordination * Sudden severe headache with no cause Do not delay calling 911 if you experience any warning signs or symptoms of a stroke. Delay in seeking medical attention may affect what treatments can be given to you. . Pending Studies at Discharge: No Stand-Alone Forms: Medications to Prevent Stroke, My [facility], Smoking Cessation Medications and DC Order Prescriptions: New simvastatin 40 mg tablet 40 mg PO HS Qty: 30 RF: 1 Eliquis 5 mg tablet 5 mg PO BID Qty: 60 RF: 1 Continued losartan 50 mg tablet 50 mg PO QAM RF: 0 biotin 1,000 mcg Tablet,Chewable 1,000 mcg PO QPM RF: 0 atenolol 25 mg Tablet 25 mg PO QAM RF: 0 omeprazole 20 mg Capsule,Delayed Release(Dr/Ec) 20 mg PO QAM RF: 0 Discontinued aspirin 81 mg Tablet,Delayed Release (Dr/Ec) 81 mg PO QPM RF: 0 simvastatin 20 mg Tablet 20 mg PO QPM RF: 0 Discharge Orders: Discharge Order (Routine); Ordered 02/07/20 Ordered By: Alberto Jay Admission Data Admit Date/Time: 02/06/20 20:44 Attending Provider: Alberto Jay Admit Provider: Dmitry Main Primary Care Provider: Meena Anguiano Other Providers: Hardik Luque ; Stevie Mancilla Other Interventions: Discharge Summary Assessment (RN) Last Done: 02/07/20 14:30 DC Date/Time DO NOT enter until pt leaves facility: 02/07/20 16:43
[2020-02-07] MEDS ORDERED: APIXABAN 5 MG TABLET PO ONE ×2 (14:52→15:00)
--- NOTE | 2020-02-07 15:05 | Pharmacy Report ---
Pharmacist Stroke Counseling - Date of Service February 07, 2020 - Scope: Pharmacy has been consulted to provide medication discharge counseling for this patient admitted with [ischemic stroke] [hemorrhagic stroke] [transient ischemic attack] as per the Pharmacist Discharge Counseling for Stroke Patients Protocol. - Medications on Discharge: Home Medications Medication Instructions Recorded Confirmed atenolol 25 mg PO QAM 03/24/19 02/06/20 omeprazole 20 mg PO QAM 03/24/19 02/06/20 biotin 1,000 mcg PO QPM 02/06/20 02/06/20 losartan 50 mg PO QAM 02/06/20 02/06/20 New Rx's Medication Instructions Recorded apixaban [Eliquis] 5 mg PO BID #60 tab 02/07/20 simvastatin 40 mg PO HS #30 tab 02/07/20 - Action: The above medications, specifically ones for stroke treatment/prophylaxis, have been reviewed in detail with the patient prior to discharge. This includes indication, common adverse reactions, drug interactions, and medication administration. Medication counseling has been employed using the teach-back method to ensure understanding. - Outcome: The patient has demonstrated understanding of the medications. Please note, they are aware that the pharmacist will call them within 72 hours post-discharge to confirm that the appropriate medications are being taken and answer any further medication related questions the patient might have at that time. Contact information Individual to be contacted: self Relationship to patient (if applicable): N/A Phone number: [phone] Best time to call: anytime Additional comments: -contacted Dr Jay to have dose of Eliquis increased to 5 mg PO BID. -discussed medication changes via phone call with patient-- she is knowledgeable about medications. -did tell me about patient assistance card. I told her if she is not able to afford Eliquis there are other options (Xarelto and warfarin - had a sister on warfarin so she is familiar with this agent). -she told me about fall history --- this is documented in neurology and Dr Jay's note. Thank you for allowing pharmacy to be involved in the care of this patient. Please call [phone] or [phone] with any additional questions
[2020-02-07] MEDS ORDERED: SIMVASTATIN 40 MG TAB PO SCH (21:00)
[2020-02-07] MEDS ORDERED: SIMVASTATIN 20 MG TAB PO SCH (21:00)
[2020-02-07] MEDS ORDERED: APIXABAN 5 MG TABLET PO SCH (21:00)
[2020-02-07] MEDS ORDERED: ASPIRIN 81 MG ECTAB PO SCH (21:00)
--- NOTE | 2020-02-07 21:49 | Electrocardiogram Report ---
Test Reason : Blood Pressure : / mmHG Vent. Rate : 063 BPM Atrial Rate : 079 BPM P-R Int : 000 ms QRS Dur : 080 ms QT Int : 400 ms P-R-T Axes : 000 -17 010 degrees QTc Int : 409 ms Atrial fibrillation with premature ventricular or aberrantly conducted complexes Inferior infarct , age undetermined Possible Anterior infarct (cited on or before 24-MAR-2019) Abnormal ECG When compared with ECG of 24-MAR-2019 10:40, No significant change Confirmed by Duong Huffman ([id number]) on 02/07/2020 9:49:26 PM Referred By: REFERRED SELF Confirmed By:Duong Huffman
--- NOTE | 2020-02-09 11:47 | Pharmacy Report ---
Pharmacist Post D/C Phone Note - Phone Note: Date of phone call: February 09, 2020. Individual with whom pharmacist spoke to: HERBERT FRANKS The following questions were reviewed during the phone call with responses listed below each: Can you tell me the medications that you are currently taking as well as when and how you take each medication? -See Table Below When have you missed any doses of your medications? - n/a What side effects are you having from your medications, specifically, the new medications you were started on? - n/a What questions do you have about your medications? - n/a What problems are you having obtaining your medications? - n/a When is your next appointment with your primary care doctor? - tbd Additional comments: - Reviewed new medications with patient. Patient reports taking new medication eliquis 5 mg bid. Denies any increase in bruising/bleeding with medication. Talked about trying to take medication 12 hours apart if able to. Patient agreed. Does report some concern for cost of eliquis. Told her to follow up with her doctor if this becomes an issue. Patient agreed. Confirmed she is no longer taking aspirin and that her dose of simvastatin increased to 40 mg daily. Patient is still trying to set up appt with her PCP as there is a least a 2 week wait. Told her to bring an updated medication list with her. No other questions or concerns. As per the Pharmacist Discharge Counseling for Stroke Patients Protocol, this phone call has been completed within 72 hours of discharge. Thank you for allowing us to be involved in the care of this patient. - Home Medications: Home Medications Medication Instructions Recorded Confirmed atenolol 25 mg PO QAM 03/24/19 02/06/20 omeprazole 20 mg PO QAM 03/24/19 02/06/20 biotin 1,000 mcg PO QPM 02/06/20 02/06/20 losartan 50 mg PO QAM 02/06/20 02/06/20 New Rx's Medication Instructions Recorded apixaban [Eliquis] 5 mg PO BID #60 tab 02/07/20 simvastatin 40 mg PO HS #30 tab 02/07/20
== END 2020-02-07 16:43 | disposition home or self-care (01) ==
LOC: ED 17:22 → 2W 17:22 → SUATTDRO 20:44 → 2W 21:25